=== PATIENT | male | born 1965 | race Caucasian/White ===

== ENCOUNTER → 2025-03-05 | Outpatient (CLI) | payer OTHER ==
[~2025-03-05] MED LIST: AMLODIPINE BESYL5 MG PO; CYCLOBENZAPRINE10 MG PO; DARVOCET N 1001 TAB PO; DAYPRO600 M1 PO; FLEXERIL10 MG PO; FLOMAX0.4 MG PO; HYDR12.5C PO; IOHEXOL 300 MG/ML 100 ML VIAL IV ONE; LISINOPRIL20 MG PO; PHENERGAN W/DM120 ML PO; PREDNICOT10 MG PO; PREDNISONE50 MG PO; PROAIR HFA0.09 MG/AC INH; VIBRAMYCIN100 MG PO
== END | disposition home or self-care (01) ==
LOC: CT 03-04 11:00
PROVIDERS: ATTEND Nurse Practitioner Family
DX: K76.0 Fatty (change of) liver, not elsewhere classified (principal); K42.9 Umbilical hernia without obstruction or gangrene; K76.89 Other specified diseases of liver; N28.1 Cyst of kidney, acquired